=== PATIENT | male | born 1990 | race African-American/Black ===

== ENCOUNTER 2017-12-28 11:19 | Emergency (ER) | payer BC, OTHER ==
[~2017-12-28] VITALS: Ht 170.2 cm; Wt 65.8 kg
[2017-12-28 11:27] VITALS: BP 113/78
== END 2017-12-28 12:00 | disposition home or self-care (01) ==
LOC: ER 11:19
DX: T16.2XXA Foreign body in left ear, initial encounter (principal); W45.8XXA Other foreign body or object entering through skin, initial encounter; Y93.89 Activity, other specified; Y92.89 Other specified places as the place of occurrence of the external cause; Y99.8 Other external cause status